=== PATIENT | male | born 1970 | race Caucasian/White ===

== ENCOUNTER 2019-12-04 06:02 | Emergency (ER) | payer OTHER ==
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
[2019-12-04] MEDS ORDERED: Proparacaine 0.5% Ophth Soln 15 ML Bottle EYERT ONE (06:49)
[2019-12-04] MEDS ORDERED: Fluorescein 1 MG Ophth Strip EYERT ONE (06:49)
== END 2019-12-04 07:37 | disposition home or self-care (01) ==
LOC: JD.ED 06:02
DX: T15.91XA Foreign body on external eye, part unspecified, right eye, initial encounter (principal); X58.XXXA Exposure to other specified factors, initial encounter
CPT/HCPCS: 65205; 65222; 99282; 99283